=== PATIENT | male | born 1960 | race American Indian/Alaskan Native ===

== ENCOUNTER 2017-06-19 15:01 | Observation (INO) | payer OTHER ==
[2017-06-19 15:02] VITALS: BMI 20.7
[2017-06-19] MEDS ORDERED: Thiamine 100 mg/ml Inj IV STA (15:17)
[2017-06-19] MEDS ORDERED: Sodium Chloride 0.9% 1,000 ML IV STA (15:17)
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
[2017-06-19] MEDS ORDERED: Thiamine 100 mg/ml Inj ONE (15:57)
[2017-06-19 16:19] LABS: BASO # 0.1 K/uL (0.0-0.2); EOS # 0.1 K/uL (0.0-0.7); HEMATOCRIT 40.6 % (35.0-51.0); LYMPH # 0.8 K/uL (1.0-4.3); LYMPH % 7.3 % (20.0-40.0); MEAN CELL VOLUME 93.4 fl (80.0-94.0); MEAN CORPUSCULAR HGB CONC 33.2 g/dL (33.0-37.0); MEAN PLATELET VOLUME 8.4 fl (7.2-11.7); MONO # 0.4 K/uL (0.0-0.8); MONO % 3.4 % (0.0-10.0); NEUT # 9.3 K/uL (1.8-7.0); NEUT % 87.3 % (50.0-75.0); PLATELET COUNT 212 K/uL (130-400); RED CELL DISTRIBUTION WIDTH 14.6 % (11.5-14.5); WHITE BLOOD COUNT 10.7 K/uL (4.8-10.8)
[2017-06-19 16:25] LABS: PARTIAL THROMBOPLASTIN TIME 27.6 Seconds (25.6-37.1)
[2017-06-19 16:31] LABS: ALB/GLOB RATIO 1.3 (1.0-2.1); ALCOHOL SERUM 58 mg/dl (0-10); ALKALINE PHOSPHATASE 108 U/L (38-126); ALT/SGPT 57 U/L (21-72); AST/SGOT 34 U/L (17-59); BILIRUBIN,TOTAL 1.3 mg/dl (0.2-1.3); BLOOD UREA NITROGEN 19 mg/dl (9-20); CALCIUM 9.5 mg/dL (8.4-10.2); CARBON DIOXIDE 24 mmol/L (22-30); CHLORIDE 99 mmol/L (98-107); GFR AFRICAN-AMERICAN > 60; GLUCOSE,RANDOM 65 mg/dL (75-110); SODIUM 136 mmol/l (132-148); TOTAL PROTEIN 7.9 G/DL (6.3-8.2)
[2017-06-19] MEDS ORDERED: Sodium Chloride 0.9% 50 ML IV ONE (16:55)
[2017-06-19] MEDS ORDERED: Iohexol 300 100 ML IJ ONE (16:55)
[2017-06-19 17:01] LABS: BASOPHIL 1 % (0-2); EOSINOPHIL 2 % (0-7); NEUTROPHIL 88 % (42-75); TOTAL CELLS COUNTED 100
[2017-06-19 17:04] LABS: LARGE PLATELETS PRESENT
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
[2017-06-19] MEDS ORDERED: Lidocaine 5% Patch TD STA (18:36)
[2017-06-19] MEDS ORDERED: Lidocaine 5% Patch TD ONE (18:46)
[2017-06-19] MEDS ORDERED: levoFLOXacin 750 mg in D5W 150 ML BAG IVPB STA (18:52)
[2017-06-19] MEDS ORDERED: levoFLOXacin 750 mg in D5W 750 MG/150 ML BAG IVPB ONE (19:29)
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
[2017-06-20 07:42] LABS: BLOOD UREA NITROGEN 15 mg/dl (9-20); CALCIUM 9.1 mg/dL (8.4-10.2); CARBON DIOXIDE 25 mmol/L (22-30); CHLORIDE 104 mmol/L (98-107); GFR AFRICAN-AMERICAN > 60; GLUCOSE,RANDOM 88 mg/dL (75-110); POTASSIUM 4.2 MMOL/L (3.6-5.0); SODIUM 135 mmol/l (132-148)
[2017-06-20 07:46] LABS: BASO # 0.1 K/uL (0.0-0.2); BASO % 1.2 % (0.0-2.0); EOS # 0.1 K/uL (0.0-0.7); EOS % 2.7 % (0.0-4.0); HEMATOCRIT 37.1 % (35.0-51.0); LYMPH # 0.7 K/uL (1.0-4.3); LYMPH % 14.1 % (20.0-40.0); MEAN CORPUSCULAR HEMOGLOBIN 30.9 pg (27.0-31.0); MEAN CORPUSCULAR HGB CONC 33.2 g/dL (33.0-37.0); MONO # 0.2 K/uL (0.0-0.8); MONO % 5.3 % (0.0-10.0); NEUT # 3.6 K/uL (1.8-7.0); NEUT % 76.7 % (50.0-75.0); NRBC % 0.1 % (0.0-0.0); RED CELL DISTRIBUTION WIDTH 13.8 % (11.5-14.5); WHITE BLOOD COUNT 4.7 K/uL (4.8-10.8)
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
[2017-06-20 12:08] VITALS: RESP 20
[2017-06-20 15:32] VITALS: BP 152/96; PULSE 79; TEMP 98.3; O2SAT 97
== END 2017-06-20 15:55 | disposition home or self-care (01) ==
LOC: H.ER 15:01 → H.ERHOLD 19:10 → H.TEL 06-20 00:05
DX: F10.129 Alcohol abuse with intoxication, unspecified (principal); S22.41XA Multiple fractures of ribs, right side, initial encounter for closed fracture; Y90.2 Blood alcohol level of 40-59 mg/100 ml; Y93.55 Activity, bike riding; Y92.410 Unspecified street and highway as the place of occurrence of the external cause; V19.5 Pedal cycle passenger injured in collision with other and unspecified motor vehicles in traffic accident; F11.10 Opioid abuse, uncomplicated; F17.200 Nicotine dependence, unspecified, uncomplicated; F31.9 Bipolar disorder, unspecified
CPT/HCPCS: 36415; 70450; 71260; 74177; 80048; 80053; 82948; 85025; 85610; 85730; 86850; 86900; 87040; 96374; 99285; G0378; G0480; J1885; J2060; J3411; J7040; Q9967

== ENCOUNTER 2017-07-19 21:18 | Emergency (ER) | payer OTHER ==
[2017-07-19 21:19] VITALS: BMI 20.7
[2017-07-19 21:57] LABS: BASO # 0.1 K/uL (0.0-0.2); EOS # 0.1 K/uL (0.0-0.7); EOS % 3.9 % (0.0-4.0); HEMATOCRIT 40.3 % (35.0-51.0); LYMPH # 1.5 K/uL (1.0-4.3); LYMPH % 39.8 % (20.0-40.0); MEAN CELL VOLUME 92.9 fl (80.0-94.0); MEAN CORPUSCULAR HEMOGLOBIN 29.9 pg (27.0-31.0); MEAN CORPUSCULAR HGB CONC 32.2 g/dL (33.0-37.0); MONO # 0.3 K/uL (0.0-0.8); NEUT # 1.8 K/uL (1.8-7.0); NEUT % 47.3 % (50.0-75.0); RED CELL DISTRIBUTION WIDTH 14.6 % (11.5-14.5); WHITE BLOOD COUNT 3.8 K/uL (4.8-10.8)
[2017-07-19 22:03] LABS: ALB/GLOB RATIO 1.2 (1.0-2.1); ALCOHOL SERUM 19 mg/dl (0-10); ALKALINE PHOSPHATASE 123 U/L (38-126); ALT/SGPT 29 U/L (21-72); AST/SGOT 24 U/L (17-59); BILIRUBIN,TOTAL 0.5 mg/dl (0.2-1.3); BLOOD UREA NITROGEN 16 mg/dl (9-20); CALCIUM 9.1 mg/dL (8.4-10.2); CARBON DIOXIDE 24 mmol/L (22-30); CHLORIDE 106 mmol/L (98-107); GFR AFRICAN-AMERICAN > 60; GLUCOSE,RANDOM 155 mg/dL (75-110); SODIUM 142 mmol/l (132-148); TOTAL PROTEIN 7.2 G/DL (6.3-8.2)
--- NOTE | 2017-07-19 23:18 | ED PDOC ---
HPI: Psych/Substance Abuse Time Seen by Provider: 07/19/17 21:22 Chief Complaint (Nursing): Altered Mental Status Chief Complaint (Provider): Substance abuse ED Caveat: Intoxicated History Per: Patient History/Exam Limitations: intoxication Onset/Duration Of Symptoms: Days (x1) Current Symptoms Are (Timing): Still Present Additional History Per: EMS Additional Complaint(s): 56 y/o male with past medical history of heroin abuse brought in by EMS, unresponsive and with agonal respirations. Patient given intranasal Narcan in the field, and receiving ongoing positive pressure upon arrival. Patient subsequently is awake and uncooperative, wanting to leave ED. Security alerted and 4 point restraints were ordered. Patient known to ED provider for previous visits related to substance abuse. PMD: Unknown Past Medical History Reviewed: Historical Data, Nursing Documentation, Vital Signs - Medical History PMH: Bipolar Disorder, Depression, Seizures Denies: Chronic Kidney Disease Other PMH: Heroin abuse - Surgical History Other surgeries: Right eye surgery - Family History Family History: States: Unknown Family Hx - Social History Current smoker - smoking cessation education provided: Yes Alcohol: > 2 Drinks/Day Drugs: Opiates - Immunization History Hx Tetanus Toxoid Vaccination: No Hx Influenza Vaccination: No Hx Pneumococcal Vaccination: No - Home Medications Home Medications: Ambulatory Orders Medication Instructions Recorded Azithromycin [Zithromax] 500 mg PO DAILY #7 tab 06/20/17 Ibuprofen [Motrin Tab] 600 mg PO Q6 PRN #20 tab 06/20/17 - Allergies Allergies/Adverse Reactions: Allergies Allergy/AdvReac Type Severity Reaction Status Date / Time No Known Allergies Allergy Verified 07/19/17 21:21 Review of Systems ROS Statement: Except As Marked, All Systems Reviewed And Found Negative Psych: Positive for: Other (Opiate abuse, drinking alcohol) Physical Exam - Reviewed Nursing Documentation Reviewed: Yes Vital Signs Reviewed: Yes - Physical Exam Appears: Positive for: Non-toxic, No Acute Distress Head Exam: Positive for: ATRAUMATIC, NORMAL INSPECTION, NORMOCEPHALIC Skin: Positive for: Normal Color, Warm, Dry Eye Exam: Positive for: Other (Right atrophic eye old and ptosis) Neck: Positive for: Normal, Supple Cardiovascular/Chest: Positive for: Regular Rate, Rhythm. Negative for: Murmur Respiratory: Positive for: Normal Breath Sounds. Negative for: Accessory Muscle Use, Respiratory Distress Gastrointestinal/Abdominal: Positive for: Normal Exam, Soft. Negative for: Tenderness Extremity: Positive for: Normal ROM. Negative for: Pedal Edema, Deformity Neurologic/Psych: Positive for: Alert (and awake), Other (Agitated) - Laboratory Results Result Diagrams: 07/19/17 21:42 07/19/17 21:42 - Critical Care Total Time (In Min): 30 Medical Decision Making Medical Decision Making: Time: 21:25 Initial Impression: 56 y/o male status post opiate related overdose Initial Plan: --Labs --EKG --4 point restraints ordered Time: 22:53 --Patient admitted to ED-OBS for opiate overdose, pending sobriety Scribe Attestation: Documented by Georgette Bose, acting as a scribe for Ren Rey MD Provider Scribe Attestation: All medical record entries made by the Scribe were at my direction and personally dictated by me. I have reviewed the chart and agree that the record accurately reflects my personal performance of the history, physical exam, medical decision making, and the department course for this patient. I have also personally directed, reviewed, and agree with the discharge instructions and disposition. ED OBSERVATION Date of observation admission: 07/19/17 Time of observation admission: 22:53 - Observation admission statement Patient is placed on observation because of need: for serial examinations to determine stability for disposition - Goals of Observation Goals of Observation: Clinical sobriety - Progress Note Time:: 22:53 Observation Progress Note: Patient remains intoxicated with unsteady gait and slurred speech Disposition - Clinical Impression Clinical Impression: Opiate overdose - Disposition Disposition Time: 22:50 Condition: STABLE Instructions: Opioid Overdose (ED) Forms: [employer] (Lao)
[2017-07-19 23:51] VITALS: BP 171/69; PULSE 73; RESP 16; TEMP 98; O2SAT 97
--- NOTE | 2017-07-21 10:18 | CARD ---
APPROVED REPORT EKG Measurement Heart [id number] <Conclusion> Normal sinus rhythm Anterior infarct, age undetermined Abnormal ECG
== END 2017-07-19 23:52 | disposition home or self-care (01) ==
LOC: H.ER 21:18
DX: F11.20 Opioid dependence, uncomplicated (principal)

== ENCOUNTER 2018-04-22 18:07 | Emergency (ER) | payer OTHER ==
[2018-04-22 18:07] VITALS: BMI 20.7
--- NOTE | 2018-04-22 19:23 | ED PDOC ---
Lower Extremity Pain/Injury Time Seen by Provider: 04/22/18 19:22 Chief Complaint (Nursing): Lower Extremity Problem/Injury Chief Complaint (Provider): left leg swelling History Per: Patient (57 y/o male here with left leg swelling noted today. Patient has h/o heroin abuse. Denies use of needle on foot or any injury.) Past Medical History Reviewed: Historical Data, Nursing Documentation, Vital Signs Vital Signs: Last Vital Signs Temp 97.9 F 04/22/18 18:33 Pulse 82 04/22/18 18:33 Resp 18 04/22/18 18:33 BP 146/98 H 04/22/18 18:33 Pulse Ox 98 04/22/18 18:33 - Medical History PMH: Bipolar Disorder, Depression, Seizures Denies: Chronic Kidney Disease - Family History Family History: States: Unknown Family Hx - Immunization History Hx Tetanus Toxoid Vaccination: No Hx Influenza Vaccination: No Hx Pneumococcal Vaccination: No - Home Medications Home Medications: Ambulatory Orders Medication Instructions Recorded Azithromycin [Zithromax] 500 mg PO DAILY #7 tab 06/20/17 Ibuprofen [Motrin Tab] 600 mg PO Q6 PRN #20 tab 06/20/17 Cephalexin [Keflex] 500 mg PO QID #28 capsule 04/23/18 - Allergies Allergies/Adverse Reactions: Allergies Allergy/AdvReac Type Severity Reaction Status Date / Time No Known Allergies Allergy Verified 07/19/17 21:21 Review of Systems ROS Statement: Except As Marked, All Systems Reviewed And Found Negative Physical Exam - Reviewed Nursing Documentation Reviewed: Yes Vital Signs Reviewed: Yes - Physical Exam Appears: Positive for: Well, Non-toxic, No Acute Distress Head Exam: Positive for: ATRAUMATIC, NORMAL INSPECTION, NORMOCEPHALIC Skin: Positive for: Normal Color, Warm, DRY Eye Exam: Positive for: EOMI, Normal appearance, PERRL ENT: Positive for: Normal ENT Inspection Neck: Positive for: Normal, Painless ROM Cardiovascular/Chest: Positive for: Regular Rate, Rhythm Respiratory: Positive for: CNT, Normal Breath Sounds Gastrointestinal/Abdominal: Positive for: Normal Exam, Soft Back: Positive for: Normal Inspection Extremity: Positive for: Normal ROM, Tenderness (mild erytehma left foot with swelling of foot /leg 2+), Swelling Neurologic/Psych: Positive for: Alert, Oriented - Laboratory Results Result Diagrams: 04/22/18 20:33 - ECG O2 Sat by Pulse Oximetry: 98 - Progress ED Course And Treament: Patient comfortable in ED, requests meal xry ankle left: no acute fx/abnl xry foot left: bone spur noted; no fx duplex lower extremity: neg for dvt Disposition - Clinical Impression Clinical Impression: Leg pain, Leg swelling, Cellulitis - Patient ED Disposition Is Patient to be Admitted: No - Disposition Referrals: Podiatry Clinic [Outside] Disposition: Routine/Home Disposition Time: 00:20 Condition: STABLE Prescriptions: Cephalexin [Keflex] 500 mg PO QID #28 capsule Instructions: Dependent Edema (DC), Cellulitis (Skin Infection), Adult (DC)
[2018-04-22 20:39] LABS: BASO # 0.1 K/uL (0.0-0.2); BASO % 1.1 % (0.0-2.0); EOS # 0.2 K/uL (0.0-0.7); EOS % 2.9 % (0.0-4.0); HEMOGLOBIN 11.5 g/dL (12.0-18.0); LYMPH # 0.6 K/uL (1.0-4.3); LYMPH % 9.9 % (20.0-40.0); MEAN CELL VOLUME 92.1 fl (80.0-94.0); MEAN CORPUSCULAR HEMOGLOBIN 30.2 pg (27.0-31.0); MEAN CORPUSCULAR HGB CONC 32.8 g/dL (33.0-37.0); MEAN PLATELET VOLUME 7.8 fl (7.2-11.7); MONO # 0.4 K/uL (0.0-0.8); MONO % 6.1 % (0.0-10.0); NEUT # 5.1 K/uL (1.8-7.0); PLATELET COUNT 213 K/uL (130-400); RBC 3.82 Mil/uL (4.40-5.90); RED CELL DISTRIBUTION WIDTH 15.8 % (11.5-14.5); WHITE BLOOD COUNT 6.3 K/uL (4.8-10.8)
[2018-04-22 22:38] LABS: BANDS 1 % (0-2); LYMPHOCYTE 12 % (20-50); NEUTROPHIL 80 % (42-75); TOTAL CELLS COUNTED 100
[2018-04-22 22:39] LABS: MONOCYTE 12 % (0-10); PLATELET ESTIMATE NORMAL (NORMAL)
[2018-04-23 00:42] VITALS: BP 139/93; PULSE 64; RESP 16; TEMP 98.8; O2SAT 96
--- NOTE | 2018-04-23 10:03 | RAD ---
PROCEDURE: Left Foot Radiographs.m HISTORY: foot swelling COMPARISON: None. FINDINGS: BONES: No acute fracture. JOINTS: First metatarsophalangeal joint degenerative changes. SOFT TISSUES: Normal. OTHER FINDINGS: None. IMPRESSION: No demonstrated fracture or degenerative changes.
--- NOTE | 2018-04-23 10:05 | RAD ---
PROCEDURE: Left Ankle Radiographs. HISTORY: ankle swelling COMPARISON: None FINDINGS: BONES: No acute fracture. JOINTS: Ankle mortise maintained. Talar dome intact SOFT TISSUES: Medial malleolar soft tissue swelling. OTHER FINDINGS: None. IMPRESSION: Medial malleolar soft tissue swelling without demonstrated demonstrated fracture dislocation.
--- NOTE | 2018-04-23 10:09 | US ---
HISTORY: left leg swelling . PRIORS: None. FINDINGS: 2-D, color and duplex Doppler analysis of the lower extremity venous circulation using routine protocol from the femoral veins through the popliteal veins. Venous compressibility: Normal. Flow and augmentation patterns: Normal. Visualized veins upper third of calf: Normal. Montesinos cyst: None. IMPRESSION: No sonographic or Doppler evidence for DVT in left lower extremity. Concordant results (preliminary interpretation) provided by [facility]. Procedure Completed: 22:42 Preliminary ([facility]) Report: Dictated and Authenticated: 23:07. Final Interpretation: 10:09. April 23, 2018.
== END 2018-04-23 01:44 | disposition home or self-care (01) ==
LOC: H.ER 18:07
DX: L03.116 Cellulitis of left lower limb (principal); M79.605 Pain in left leg; Z86.59 Personal history of other mental and behavioral disorders

== ENCOUNTER 2018-05-13 21:14 | Emergency (ER) | payer OTHER ==
[2018-05-13 21:15] VITALS: BMI 20.7
[2018-05-13 21:41] VITALS: O2SAT 96
--- NOTE | 2018-05-13 22:21 | ED PDOC ---
HPI: General Adult Time Seen by Provider: 05/13/18 21:30 Chief Complaint (Nursing): Medical Clearance Chief Complaint (Provider): Medical Clearance History Per: Patient, EMS History/Exam Limitations: no limitations Onset/Duration Of Symptoms: Hrs Current Symptoms Are (Timing): Still Present Additional Complaint(s): Brett Peraza is a 57 year old male with a past medical history of hypertension , seizures, and substance abuse who is presenting to the ED in custody of police for medical and psychiatric clearance. Patient reports that after he was arrested he started having nausea, body aches and chest pain which he thinks are due to heroin withdrawal. He also states that he thinks his blood pressure is elevated and he does take medications but does not remember which ones ( provider believes he is non-compliant with medications due to lack of recall). Patient admits to regular heroin abuse but denies taking any drugs today. He denies any difficulty breathing, headache, fever, or abdominal pain. PMD: none provided Past Medical History Reviewed: Historical Data, Nursing Documentation, Vital Signs Vital Signs: Last Vital Signs Temp 98.2 F 05/13/18 21:18 Pulse 65 05/13/18 22:07 Resp 16 05/13/18 21:40 BP 166/88 H 05/13/18 22:07 Pulse Ox 96 05/13/18 23:38 - Medical History PMH: Bipolar Disorder, Depression, HTN, Seizures Denies: Chronic Kidney Disease - Surgical History Surgical History: No Surg Hx - Family History Family History: States: Unknown Family Hx - Social History Current smoker - smoking cessation education provided: No Alcohol: Other (abuse) Drugs: Opiates - Immunization History Hx Tetanus Toxoid Vaccination: No Hx Influenza Vaccination: No Hx Pneumococcal Vaccination: No - Home Medications Home Medications: Ambulatory Orders Medication Instructions Recorded Azithromycin [Zithromax] 500 mg PO DAILY #7 tab 06/20/17 Ibuprofen [Motrin Tab] 600 mg PO Q6 PRN #20 tab 06/20/17 Cephalexin [Keflex] 500 mg PO QID #28 capsule 04/23/18 - Allergies Allergies/Adverse Reactions: Allergies Allergy/AdvReac Type Severity Reaction Status Date / Time No Known Allergies Allergy Verified 05/13/18 21:18 Review of Systems ROS Statement: Except As Marked, All Systems Reviewed And Found Negative Constitutional: Positive for: Other (body aches). Negative for: Fever Cardiovascular: Positive for: Chest Pain Respiratory: Negative for: Other (difficulty breathing) Gastrointestinal: Positive for: Nausea. Negative for: Abdominal Pain Neurological: Negative for: Headache Physical Exam - Reviewed Nursing Documentation Reviewed: Yes Vital Signs Reviewed: Yes - Physical Exam Appears: Positive for: Well, Non-toxic, No Acute Distress Head Exam: Positive for: ATRAUMATIC, NORMAL INSPECTION, NORMOCEPHALIC Skin: Positive for: Normal Color, Warm, DRY Eye Exam: Positive for: EOMI, Normal appearance, PERRL ENT: Positive for: Normal ENT Inspection Neck: Positive for: Normal, Painless ROM Cardiovascular/Chest: Positive for: Regular Rate, Rhythm Respiratory: Positive for: Normal Breath Sounds. Negative for: Respiratory Distress Back: Positive for: Normal Inspection Extremity: Positive for: Normal ROM. Negative for: Deformity, Swelling Neurologic/Psych: Positive for: Alert, Oriented. Negative for: Motor/Sensory Deficits - ECG O2 Sat by Pulse Oximetry: 96 (RA) Pulse Ox Interpretation: Normal Medical Decision Making Medical Decision Making: Time: 21:38 Impression: nausea, body aches, chest pain Differentials: heroin withdrawal, substance abuse, hypertension Plan: --EKG --Crisis Evaluation --Norvasc 5 mg PO --Tylenol 650 mg PO --Zofran 4 mg PO Scribe Attestation: Documented by, Loly Park acting as a scribe for Nini Alvarez MD. Provider Scribe Attestation: All medical record entries made by the Scribe were at my direction and personally dictated by me. I have reviewed the chart and agree that the record accurately reflects my personal performance of the history, physical exam, medical decision making, and the department course for this patient. I have also personally directed, reviewed, and agree with the discharge instructions and disposition. Disposition - Clinical Impression Clinical Impression: Hypertension, Substance abuse Doctor Will See Patient In The: Office Counseled Patient/Family Regarding: Studies Performed, Diagnosis, Need For Followup - Disposition [facility]errals: [facility] [Outside] Disposition: Discharged/Transfer to Law Enforcement Disposition Time: 23:38 Condition: GOOD Additional Instructions: Patient is medically and psychiatrically cleared for incarceration. Instructions: High Blood Pressure (DC), Drug Abuse and Drug Addiction (DC)
[2018-05-14 05:53] VITALS: BP 158/88; PULSE 86; RESP 18; TEMP 98.3
--- NOTE | 2018-05-15 17:52 | CARD ---
APPROVED REPORT Date of service: 05/13/2018 EKG Measurement Heart [id number] <Conclusion> Normal sinus rhythm Possible Left atrial enlargement Anterior infarct, age undetermined Abnormal ECG
== END 2018-05-13 23:40 | disposition home or self-care (01) ==
LOC: H.ER 21:14
DX: F19.10 Other psychoactive substance abuse, uncomplicated (principal); I10 Essential (primary) hypertension; Z86.59 Personal history of other mental and behavioral disorders; R56.9 Unspecified convulsions

== ENCOUNTER 2018-08-28 21:57 | Emergency (ER) | payer OTHER ==
[2018-08-28 21:57] VITALS: BMI 20.7
[2018-08-28 22:18] VITALS: O2SAT 98
[2018-08-28 23:15] VITALS: BP 127/66; PULSE 71; RESP 17; TEMP 97.6
--- NOTE | 2018-08-28 23:23 | ED PDOC ---
HPI: General Adult Time Seen by Provider: 08/28/18 22:11 Chief Complaint (Nursing): Medical Clearance Chief Complaint (Provider): clearance for incarceration Additional Complaint(s): 58 y/o male here in police custody for medical and psychiatric clearance for incarceration. Patient states he is having chest and body pain, which he usually gets when he has heroin withdrawals; states he last used 2 days ago. Denies fever, nausea/vomiting, shortness of breath, palpitations, changes in bowel movements, alcohol use, suicidal/homicidal ideations. Patient requesting food Past Medical History Reviewed: Historical Data, Nursing Documentation, Vital Signs Vital Signs: Last Vital Signs Temp 97.6 F 08/28/18 23:14 Pulse 71 08/28/18 23:14 Resp 17 08/28/18 23:14 BP 127/66 08/28/18 23:14 Pulse Ox 98 08/28/18 23:14 - Medical History PMH: Bipolar Disorder, Depression, HTN, Seizures Denies: Chronic Kidney Disease - Family History Family History: States: Unknown Family Hx - Immunization History Hx Tetanus Toxoid Vaccination: No Hx Influenza Vaccination: No Hx Pneumococcal Vaccination: No - Home Medications Home Medications: Ambulatory Orders Medication Instructions Recorded Azithromycin [Zithromax] 500 mg PO DAILY #7 tab 06/20/17 Ibuprofen [Motrin Tab] 600 mg PO Q6 PRN #20 tab 06/20/17 Cephalexin [Keflex] 500 mg PO QID #28 capsule 04/23/18 - Allergies Allergies/Adverse Reactions: Allergies Allergy/AdvReac Type Severity Reaction Status Date / Time No Known Allergies Allergy Verified 08/28/18 22:15 Review of Systems ROS Statement: Except As Marked, All Systems Reviewed And Found Negative Physical Exam - Reviewed Nursing Documentation Reviewed: Yes Vital Signs Reviewed: Yes - Physical Exam Appears: Positive for: Well, Non-toxic, No Acute Distress Head Exam: Positive for: ATRAUMATIC, NORMAL INSPECTION, NORMOCEPHALIC Skin: Positive for: Normal Color Eye Exam: Positive for: Normal appearance, Other (chronic right eye deformity) ENT: Positive for: Normal ENT Inspection Cardiovascular/Chest: Positive for: Regular Rate, Rhythm Respiratory: Positive for: Normal Breath Sounds Gastrointestinal/Abdominal: Positive for: Normal Exam Back: Positive for: Normal Inspection Extremity: Positive for: Normal ROM Neurologic/Psych: Positive for: Alert, Oriented (x3) - ECG ECG: Positive for: Viewed By Me (reviewed by ED attending) ECG Rhythm: Positive for: Sinus Bradycardia O2 Sat by Pulse Oximetry: 98 - Progress ED Course And Treament: EKG, accucheck, crisis eval Patient tolerated PO in ED; no distress. Vitals stable Patient evaluated by dry mill worker and cleared for discharge as per Dr. Diaz Disposition - Clinical Impression Clinical Impression: Substance abuse, Adjustment disorder - Patient ED Disposition Is Patient to be Admitted: No Counseled Patient/Family Regarding: Studies Performed, Diagnosis, Need For Followup - Disposition Disposition: Discharged/Transfer to Law Enforcement Disposition Time: 00:30 Condition: IMPROVED Additional Instructions: Patient medically and psychiatrically cleared for incarceration Instructions: Adjustment Disorder, Drug Abuse Treatment
--- NOTE | 2018-08-29 06:44 | CARD ---
APPROVED REPORT Date of service: 08/28/2018 EKG Measurement Heart [id number] NE 152P77 [id number] <Conclusion> Sinus bradycardia Anteroseptal infarct, age undetermined Abnormal ECG
== END 2018-08-29 00:35 ==
LOC: H.ER 21:57
DX: F19.10 Other psychoactive substance abuse, uncomplicated (principal); F43.20 Adjustment disorder, unspecified; I10 Essential (primary) hypertension; Z86.59 Personal history of other mental and behavioral disorders

== ENCOUNTER 2018-11-08 23:08 | Emergency (ER) | payer OTHER ==
[2018-11-08 23:08] VITALS: BMI 20.7
--- NOTE | 2018-11-08 23:46 | ED PDOC ---
HPI: Psych/Substance Abuse Time Seen by Provider: 11/08/18 23:24 Chief Complaint (Nursing): Substance Abuse Chief Complaint (Provider): Substance Abuse History Per: Patient History/Exam Limitations: no limitations Additional Complaint(s): 58 y/o male with a history of hypertension and bipolar disorder brought in by D for medical and psychiatric clearance for incarceration. Patient is well known to provider for frequent visits to ER. Patient has established well known history of heroin abuse. He reports he feels "withdrawal" and reports using 2 heroin today. Patient sleeping in room comfortably, requesting medicine. He denies any chest pain, shortness of breath, nausea, vomiting or diarrhea. PMD: None provided Past Medical History Reviewed: Historical Data, Nursing Documentation, Vital Signs Vital Signs: Last Vital Signs Temp 98.4 F 11/08/18 23:15 Pulse 69 11/08/18 23:15 Resp 17 11/08/18 23:15 BP 119/95 H 11/08/18 23:15 Pulse Ox 98 11/08/18 23:15 - Medical History PMH: Bipolar Disorder, Depression, HTN, Seizures Denies: Diabetes, Hepatitis, HIV, Chronic Kidney Disease, Sexually Transmitted Disease - Surgical History Surgical History: No Surg Hx - Family History Family History: States: Unknown Family Hx - Social History Alcohol: Social Drugs: Other (Heroin) - Immunization History Hx Tetanus Toxoid Vaccination: No Hx Influenza Vaccination: No Hx Pneumococcal Vaccination: No - Home Medications Home Medications: Ambulatory Orders Medication Instructions Recorded Azithromycin [Zithromax] 500 mg PO DAILY #7 tab 06/20/17 Ibuprofen [Motrin Tab] 600 mg PO Q6 PRN #20 tab 06/20/17 Cephalexin [Keflex] 500 mg PO QID #28 capsule 04/23/18 - Allergies Allergies/Adverse Reactions: Allergies Allergy/AdvReac Type Severity Reaction Status Date / Time No Known Allergies Allergy Verified 11/08/18 23:17 Review of Systems ROS Statement: Except As Marked, All Systems Reviewed And Found Negative Cardiovascular: Negative for: Chest Pain Respiratory: Negative for: Shortness of Breath Gastrointestinal: Negative for: Nausea, Vomiting, Diarrhea Psych: Positive for: Withdrawal Physical Exam - Reviewed Nursing Documentation Reviewed: Yes Vital Signs Reviewed: Yes - Physical Exam Appears: Positive for: No Acute Distress Head Exam: Positive for: ATRAUMATIC, NORMOCEPHALIC Skin: Positive for: Normal Color, Warm, Dry Eye Exam: Positive for: Other (Right eye enucleated) Neck: Positive for: Normal, Painless ROM, Supple Cardiovascular/Chest: Positive for: Regular Rate, Rhythm. Negative for: Murmur Respiratory: Positive for: Normal Breath Sounds. Negative for: Wheezing Gastrointestinal/Abdominal: Positive for: Normal Exam, Soft. Negative for: Tenderness Back: Positive for: Normal Inspection. Negative for: L CVA Tenderness, R CVA Tenderness Extremity: Positive for: Normal ROM. Negative for: Pedal Edema, Deformity Neurologic/Psych: Positive for: Alert, Oriented (x3) - ECG O2 Sat by Pulse Oximetry: 98 (RA) Pulse Ox Interpretation: Normal Medical Decision Making Medical Decision Making: Time: 2334 Initial Impression: 58 y/o male brought in for medical and psychiatric clearance for incarceration. Initial Plan: --Crisis evaluation 2342 Patient cleared by provider and crisis. Scribe Attestation: Documented by Marlen Horton, acting as a scribe Ren Rey MD. Provider Scribe Attestation: All medical record entries made by the Scribe were at my direction and personally dictated by me. I have reviewed the chart and agree that the record accurately reflects my personal performance of the history, physical exam, medical decision making, and the department course for this patient. I have also personally directed, reviewed, and agree with the discharge instructions and disposition. Disposition - Clinical Impression Clinical Impression: Substance abuse, Examination, medicolegal - Patient ED Disposition Is Patient to be Admitted: No - Disposition Disposition: Discharged/Transfer to Law Enforcement Disposition Time: 23:43 Condition: STABLE Additional Instructions: Patient is medically and psychiatrically stable for incarceration Instructions: Polysubstance Abuse Forms: [employer] (Greenlandic)
[2018-11-09 04:02] VITALS: BP 118/85; PULSE 72; RESP 16; TEMP 98.2; O2SAT 97
== END 2018-11-09 00:40 ==
LOC: H.ER 23:08
DX: F19.10 Other psychoactive substance abuse, uncomplicated (principal); F31.9 Bipolar disorder, unspecified; I10 Essential (primary) hypertension

== ENCOUNTER 2019-02-22 17:45 | Emergency (ER) | payer OTHER ==
[2019-02-22 17:46] VITALS: BMI 20.7
--- NOTE | 2019-02-22 17:52 | ED PDOC ---
HPI: Psych/Substance Abuse Time Seen by Provider: 02/22/19 17:49 Chief Complaint (Nursing): Substance Abuse Chief Complaint (Provider): Substance abuse ED Caveat: Acuity of Condition History Per: EMS Modifying Factor(s): Narcotics Additional Complaint(s): 58yo male, brought to ER by EMS for evaluation due to substance abuse. Per EMS, patient given Narcan spray twice with minimal improvement. Per EMS, bystanders stated patient had a bottle on his person. On arrival, patient not awake but responsive to painful stimuli. Past Medical History Reviewed: Historical Data, Nursing Documentation, Vital Signs Vital Signs: Last Vital Signs Temp 97 F L 02/22/19 17:47 Pulse 100 H 02/22/19 17:47 Resp 20 02/22/19 17:47 BP 118/78 02/22/19 17:47 Pulse Ox 98 02/22/19 17:47 Primary Care Provider: FAMILY PROVIDER,NO - Medical History PMH: Bipolar Disorder, Depression, HTN, Seizures Denies: Diabetes, Hepatitis, HIV, Chronic Kidney Disease, Sexually Transmitted Disease - Family History Family History: States: Unknown Family Hx - Immunization History Hx Tetanus Toxoid Vaccination: No Hx Influenza Vaccination: No Hx Pneumococcal Vaccination: No - Home Medications Home Medications: Ambulatory Orders Medication Instructions Recorded Azithromycin [Zithromax] 500 mg PO DAILY #7 tab 06/20/17 Ibuprofen [Motrin Tab] 600 mg PO Q6 PRN #20 tab 06/20/17 Cephalexin [Keflex] 500 mg PO QID #28 capsule 04/23/18 Naloxone HCl [Narcan] 4 mg NS ONCE PRN #1 spray 02/22/19 - Allergies Allergies/Adverse Reactions: Allergies Allergy/AdvReac Type Severity Reaction Status Date / Time No Known Allergies Allergy Verified 02/22/19 17:47 Review of Systems Review Of Systems: ROS cannot be obtained secondary to pt's inabilty to answer questions. Physical Exam - Reviewed Nursing Documentation Reviewed: Yes Vital Signs Reviewed: Yes - Physical Exam Appears: Positive for: No Acute Distress (but very lethargic. Dissheveled and malodorous) Head Exam: Positive for: ATRAUMATIC, NORMOCEPHALIC Skin: Positive for: Warm, Dry Eye Exam: Positive for: EOMI, PERRL ENT: Positive for: Other (gag reflex intact) Neck: Positive for: Painless ROM, Supple Cardiovascular/Chest: Positive for: Regular Rate, Rhythm. Negative for: JVD Respiratory: Negative for: Rales, Rhonchi, Wheezing, Respiratory Distress Gastrointestinal/Abdominal: Positive for: Soft. Negative for: Tenderness Extremity: Negative for: Deformity, Swelling Lymphatic: Negative for: Adenopathy Neurological/Psych: Positive for: Other (responds to and localizes painful stimuli). Negative for: Awake, Alert - Laboratory Results Result Diagrams: 02/22/19 18:09 02/22/19 18:09 - ECG O2 Sat by Pulse Oximetry: 98 (RA) Pulse Ox Interpretation: Normal Medical Decision Making Medical Decision Making: Impression: Substance abuse Plan: -- Labs -- EKG -- CT Head w/o contrast -- Accucheck 1753 Accucheck 194 Accession No. : [id number] Patient Name / ID : AMADEO AMIN / [id number] Exam Date : 02/22/2019 18:13:07 ( Approved ) Study Comment : Sex / Age : M / 58Y Creator : hira tolliver Dictator : Shira Martin MD Turkish Line Attendant : Automotive Worker Foreman : Shira Martin MD Approver2 : Report Date : 02/22/2019 18:31:09 My Comment : Date of service: 02/22/2019 HISTORY: Altered mental status COMPARISON: CT chest from 06/19/2017 FINDINGS: LUNGS: The lungs are well inflated and clear. No focal consolidation there is left basilar atelectasis/scarring. PLEURA: No pleural effusions or pneumothorax. CARDIOVASCULAR: The heart is normal in size. No aortic atherosclerotic calcifications present. OSSEOUS STRUCTURES: Within normal limits for the patient's age. VISUALIZED UPPER ABDOMEN: Normal. OTHER FINDINGS: None. IMPRESSION: No acute findings. Accession No. : [id number] Patient Name / ID : AMADEO AMIN / [id number] Exam Date : 02/22/2019 18:13:07 ( Approved ) Study Comment : Sex / Age : M / 58Y Creator : hira tolliver Dictator : Shira Martin MD Turkish Line Attendant : Automotive Worker Foreman : Shira Martin MD Approver2 : Report Date : 02/22/2019 18:31:09 My Comment : Date of service: 02/22/2019 HISTORY: Altered mental status COMPARISON: CT chest from 06/19/2017 FINDINGS: LUNGS: The lungs are well inflated and clear. No focal consolidation there is left basilar atelectasis/scarring. PLEURA: No pleural effusions or pneumothorax. CARDIOVASCULAR: The heart is normal in size. No aortic atherosclerotic calcifications present. OSSEOUS STRUCTURES: Within normal limits for the patient's age. VISUALIZED UPPER ABDOMEN: Normal. OTHER FINDINGS: None. IMPRESSION: No acute findings. 2000 Pt alert and watching TV comfortably. Labs demonstrate elevated lactic acid which is improving (serum was first, then ABG). This is more consistent with possible hypoperfusion while opiate intoxicated rather than acute infection. (Pt with normal WBC, normal CXR, no fever.) Stable for discharge. Scribe Attestation: Documented by Oriana Celaya acting as a scribe for Soheila Betancourt MD Provider Scribe Attestation: All medical record entries made by the Scribe were at my direction and pe rsonally dictated by me. I have reviewed the chart and agree that the record accurately reflects my personal performance of the history, physical exam, medical decision making, and the department course for this patient. I have also personally directed, reviewed, and agree with the discharge instructions and disposition. Disposition - Clinical Impression Clinical Impression: Alcohol intoxication, Opiate overdose Counseled Patient/Family Regarding: Studies Performed, Diagnosis, Need For Followup, Rx Given (addiction resources provided) - Disposition Referrals: [facility] [Outside] Disposition: Routine/Home Disposition Time: 20:29 Condition: IMPROVED Prescriptions: Naloxone HCl [Narcan] 4 mg NS ONCE PRN #1 spray PRN Reason: opiate overdose Instructions: Polysubstance Abuse (DC), Narcotic Overdose (DC)
[2019-02-22] MEDS ORDERED: Naloxone HCl 2mg/2ml syr ONE (17:59)
[2019-02-22] MEDS ORDERED: Naloxone 0.4 mg/ml Inj (Adult) ONE (17:59)
[2019-02-22] MEDS ORDERED: Sodium Chloride 0.9% 1,000 ML IV STA ×2 (18:05)
[2019-02-22 18:30] VITALS: BP 130/92; PULSE 74; RESP 12; TEMP 98.5
[2019-02-22 18:34] LABS: INR 0.9; PROTHROMBIN TIME 10.6 Seconds (9.8-13.1)
--- NOTE | 2019-02-22 18:36 | CT ---
Date of service: 02/22/2019 PROCEDURE: CT HEAD WITHOUT CONTRAST. HISTORY: Altered mental status COMPARISON: 06/19/2017. TECHNIQUE: Axial computed tomography images were obtained through the head/brain without intravenous contrast. Radiation dose: Total exam DLP = 2026.74 mGy-cm. This CT exam was performed using one or more of the following dose reduction techniques: Automated exposure control, adjustment of the mA and/or kV according to patient size, and/or use of iterative reconstruction technique. FINDINGS: HEMORRHAGE: No intracranial hemorrhage. BRAIN: There are mild chronic microangiopathic changes. There is no mass, mass effect or abnormal extra-axial fluid collection. There is no territorial infarction. The midline sagittal structures are normal. VENTRICLES: The ventricles are normal in size, shape and configuration. CALVARIUM: There is no calvarial fracture or extracranial soft tissue swelling. PARANASAL SINUSES: Predominantly clear. MASTOID AIR CELLS: Predominantly clear. 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 The left globe is unremarkable. IMPRESSION: No acute intracranial abnormality.
[2019-02-22 18:37] LABS: PARTIAL THROMBOPLASTIN TIME 31.9 Seconds (25.6-37.1)
--- NOTE | 2019-02-22 18:37 | RAD ---
Date of service: 02/22/2019 HISTORY: Altered mental status COMPARISON: CT chest from 06/19/2017 FINDINGS: LUNGS: The lungs are well inflated and clear. No focal consolidation there is left basilar atelectasis/scarring. PLEURA: No pleural effusions or pneumothorax. CARDIOVASCULAR: The heart is normal in size. No aortic atherosclerotic calcifications present. OSSEOUS STRUCTURES: Within normal limits for the patient's age. VISUALIZED UPPER ABDOMEN: Normal. OTHER FINDINGS: None. IMPRESSION: No acute findings.
[2019-02-22 18:46] LABS: ABG ALLEN TEST YES; ARTERIAL BLOOD GAS HCO3 20.4 mmol/L (21-28); ARTERIAL BLOOD GAS O2 SAT 96.5 % (95-98); ARTERIAL BLOOD GAS PCO2 50 mm/Hg (35-45); ARTERIAL BLOOD GAS PH 7.25 (7.35-7.45); ARTERIAL BLOOD GAS PO2 73 mm/Hg (80-100); ARTERIAL BLOOD GAS TCO2 23.4 mmol/L (22-28)
[2019-02-22] MEDS ORDERED: Albuterol-Ipratrop 3 mg / 0.5 (3 ml) UD INH STA (18:48)
[2019-02-22 18:51] VITALS: O2SAT 98
[2019-02-22] MEDS ORDERED: Albuterol-Ipratrop 3 mg / 0.5 (3 ml) UD ONE (18:51)
[2019-02-22 18:52] LABS: BASO # 0.1 K/uL (0.0-0.2); BASO % 1.5 % (0.0-2.0); EOS # 0.2 K/uL (0.0-0.7); EOS % 5.3 % (0.0-4.0); HEMOGLOBIN 12.6 g/dL (12.0-18.0); LYMPH # 1.5 K/uL (1.0-4.3); LYMPH % 34.7 % (20.0-40.0); MEAN CELL VOLUME 94.7 fl (80.0-94.0); MEAN CORPUSCULAR HEMOGLOBIN 31.2 pg (27.0-31.0); MONO # 0.3 K/uL (0.0-0.8); MONO % 6.5 % (0.0-10.0); NEUT # 2.2 K/uL (1.8-7.0); NRBC % 0.2 % (0.0-0.0); RBC 4.03 Mil/uL (4.40-5.90); RED CELL DISTRIBUTION WIDTH 14.7 % (11.5-14.5); WHITE BLOOD COUNT 4.2 K/uL (4.8-10.8)
[2019-02-22 19:04] LABS: ALB/GLOB RATIO 1.3 (1.0-2.1); ALT/SGPT 31 U/L (21-72); AST/SGOT 46 U/L (17-59); BLOOD UREA NITROGEN 19 mg/dl (9-20); CALCIUM 8.4 mg/dL (8.4-10.2); GFR NON-AFRICAN AMERICAN > 60
[2019-02-22 19:13] LABS: ACETAMINOPHEN < 10.0 ug/ml (10.0-30.0); SALICYLATE < 1.0 mg/dl
[2019-02-22 19:24] LABS: BARBITURATES, UR NEGATIVE (NEGATIVE); BENZODIAZEPINES, UR POSITIVE (NEGATIVE); OPIATES, UR POSITIVE (NEGATIVE); PHENCYCLIDINE, UR NEGATIVE (NEGATIVE)
--- NOTE | 2019-02-23 14:25 | CARD ---
APPROVED REPORT Date of service: 02/22/2019 EKG Measurement Heart [id number] CT 154P78 [id number] <Conclusion> Sinus bradycardia Otherwise normal ECG
== END 2019-02-22 20:58 | disposition home or self-care (01) ==
LOC: H.ER 17:45
DX: F10.129 Alcohol abuse with intoxication, unspecified (principal); T40.601A Poisoning by unspecified narcotics, accidental (unintentional), initial encounter; F31.9 Bipolar disorder, unspecified; I10 Essential (primary) hypertension
CPT/HCPCS: 70450; 71045; 80053; 80320; 80324; 80329; 80345; 80346; 80349; 80353; 80358; 80361; 82803; 82948; 83605; 83735; 83992; 84100; 84484; 85025; 85610; 85730; 86850; 86900; 93005; 96360; 99283; J7030

== ENCOUNTER 2019-03-01 19:35 | Emergency (ER) | payer OTHER ==
[2019-03-01 19:35] VITALS: BMI 20.7
[2019-03-01 22:23] LABS: BASO # 0.1 K/uL (0.0-0.2); BASO % 1.3 % (0.0-2.0); EOS # 0.2 K/uL (0.0-0.7); EOS % 3.5 % (0.0-4.0); HEMOGLOBIN 12.4 g/dL (12.0-18.0); LYMPH # 0.7 K/uL (1.0-4.3); LYMPH % 11.8 % (20.0-40.0); MEAN CELL VOLUME 92.8 fl (80.0-94.0); MEAN CORPUSCULAR HGB CONC 33.4 g/dL (33.0-37.0); MONO # 0.2 K/uL (0.0-0.8); MONO % 3.2 % (0.0-10.0); NEUT # 4.6 K/uL (1.8-7.0); NEUT % 80.2 % (50.0-75.0); RBC 3.98 Mil/uL (4.40-5.90); RED CELL DISTRIBUTION WIDTH 15.2 % (11.5-14.5); WHITE BLOOD COUNT 5.8 K/uL (4.8-10.8)
[2019-03-01 22:41] LABS: BENZODIAZEPINES, UR NEGATIVE (NEGATIVE)
[2019-03-01 23:07] LABS: ALB/GLOB RATIO 1.3 (1.0-2.1); ALBUMIN 3.9 g/dL (3.5-5.0); ALT/SGPT 31 U/L (21-72); AST/SGOT 30 U/L (17-59); BARBITURATES, UR NEGATIVE (NEGATIVE); BLOOD UREA NITROGEN 17 mg/dl (9-20); CALCIUM 8.8 mg/dL (8.4-10.2); GFR NON-AFRICAN AMERICAN > 60; OPIATES, UR POSITIVE (NEGATIVE); PHENCYCLIDINE, UR NEGATIVE (NEGATIVE)
--- NOTE | 2019-03-02 00:50 | ED PDOC ---
HPI: Psych/Substance Abuse Time Seen by Provider: 03/01/19 20:32 Chief Complaint (Nursing): Substance Abuse Chief Complaint (Provider): drug abuse History Per: Patient History/Exam Limitations: no limitations Onset/Duration Of Symptoms: Days Additional Complaint(s): 58 yo male with history of opiate and cocaine abuse presents after being found unresponsive. PT denies complaints in ER. Pt awake and alert on arrival to Er. Pt admits to using drugs. Past Medical History Vital Signs: Last Vital Signs Temp 96.2 F L 03/01/19 19:35 Pulse 93 H 03/01/19 19:35 Resp 20 03/01/19 19:35 BP 183/129 H 03/01/19 19:35 Pulse Ox 93 L 03/01/19 19:35 Primary Care Provider: FAMILY PROVIDER,NO - Medical History PMH: Bipolar Disorder, Depression, HTN, Seizures Denies: Diabetes, Hepatitis, HIV, Chronic Kidney Disease, Sexually Transmitted Disease - Family History Family History: States: Unknown Family Hx - Immunization History Hx Tetanus Toxoid Vaccination: No Hx Influenza Vaccination: No Hx Pneumococcal Vaccination: No - Home Medications Home Medications: Ambulatory Orders Medication Instructions Recorded Azithromycin [Zithromax] 500 mg PO DAILY #7 tab 06/20/17 Ibuprofen [Motrin Tab] 600 mg PO Q6 PRN #20 tab 06/20/17 Cephalexin [Keflex] 500 mg PO QID #28 capsule 04/23/18 Naloxone HCl [Narcan] 4 mg NS ONCE PRN #1 spray 02/22/19 - Allergies Allergies/Adverse Reactions: Allergies Allergy/AdvReac Type Severity Reaction Status Date / Time No Known Allergies Allergy Verified 03/01/19 19:35 Review of Systems ROS Statement: Except As Marked, All Systems Reviewed And Found Negative Constitutional: Negative for: Fever, Chills Cardiovascular: Negative for: Chest Pain, Palpitations Respiratory: Negative for: Cough, Shortness of Breath Gastrointestinal: Negative for: Nausea, Vomiting, Abdominal Pain Musculoskeletal: Negative for: Neck Pain, Back Pain Physical Exam - Reviewed Nursing Documentation Reviewed: Yes Vital Signs Reviewed: Yes - Physical Exam Appears: Positive for: Well, Non-toxic, No Acute Distress Head Exam: Positive for: ATRAUMATIC, NORMAL INSPECTION, NORMOCEPHALIC Skin: Positive for: Normal Color, Warm, DRY Eye Exam: Positive for: Normal appearance ENT: Positive for: Normal ENT Inspection Neck: Positive for: Normal, Painless ROM Cardiovascular/Chest: Positive for: Regular Rate, Rhythm Respiratory: Positive for: CNT, Normal Breath Sounds Gastrointestinal/Abdominal: Positive for: Normal Exam, Soft Back: Positive for: Normal Inspection Extremity: Positive for: Normal ROM Neurological/Psych: Positive for: Awake, Alert, Normal Tone - Laboratory Results Result Diagrams: 03/01/19 22:14 03/01/19 22:14 Lab Results: Troponin I < 0.0120 ng/mL (0.00-0.120) 03/01/19 22:14 Total Bilirubin 0.4 mg/dl (0.2-1.3) 03/01/19 22:14 AST 30 U/L (17-59) 03/01/19 22:14 ALT 31 U/L (21-72) 03/01/19 22:14 Alkaline Phosphatase 79 U/L (38-126) 03/01/19 22:14 Total Protein 6.8 G/DL (6.3-8.2) 03/01/19 22:14 Albumin 3.9 g/dL (3.5-5.0) 03/01/19 22:14 Globulin 2.9 gm/dL (2.2-3.9) 03/01/19 22:14 Albumin/Globulin Ratio 1.3 (1.0-2.1) 03/01/19 22:14 - ECG O2 Sat by Pulse Oximetry: 93 Medical Decision Making Medical Decision Making: Pt on director school of nursing in ER. Vitals stable. Pt remains alert and oriented during ER visit. Disposition - Clinical Impression Clinical Impression: Opiate overdose - Patient ED Disposition Is Patient to be Admitted: No - Disposition Disposition: Routine/Home Disposition Time: 01:55 Condition: GOOD Instructions: Narcotic Overdose Forms: [employer] ([place] Islander)
[2019-03-02 02:56] VITALS: BP 118/76; PULSE 57; RESP 14; TEMP 98; O2SAT 95
--- NOTE | 2019-03-02 10:52 | CARD ---
APPROVED REPORT Date of service: 03/01/2019 EKG Measurement Heart [id number] ME 140P70 [id number] <Conclusion> Sinus bradycardia Otherwise normal ECG
== END 2019-03-02 02:56 | disposition home or self-care (01) ==
LOC: H.ER 19:35
DX: T40.2X1A Poisoning by other opioids, accidental (unintentional), initial encounter (principal); F31.9 Bipolar disorder, unspecified; I10 Essential (primary) hypertension; F14.10 Cocaine abuse, uncomplicated